=== PATIENT | female | born 1945 | race Native Hawaiian/Other Pacific Islander ===

== ENCOUNTER 2017-06-13 10:46 | Emergency (ER) | payer OTHER, MEDICARE ==
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
[2017-06-13 13:24] VITALS: BP 115/74; PULSE 58; RESP 18; TEMP 97.7
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
[2017-06-13 14:02] VITALS: O2SAT 97
== END 2017-06-13 14:05 | disposition home or self-care (01) ==
LOC: C.ER 10:46
DX: S13.4XXA Sprain of ligaments of cervical spine, initial encounter (principal); V89.2XXA Person injured in unspecified motor-vehicle accident, traffic, initial encounter; R51 Headache